=== PATIENT | male | born 1955 | race Caucasian/White ===

== ENCOUNTER 2021-04-27 08:23 | Day surgery (SDC) | payer OTHER ==
[2021-04-22 15:51] VITALS: BMI 25.1
[2021-04-27] MEDS ORDERED: PROPOFOL 20 ML ONE (09:47)
[2021-04-27] MEDS ORDERED: MIDAZOLAM HCL 2 MG/2 ML SINGLE DOSE VIAL ONE (09:47)
[2021-04-27] MEDS ORDERED: DEXAMETHASONE SOD PHOSPHATE 4 MG/1 ML VIAL ONE (09:48)
[2021-04-27] MEDS ORDERED: LIDOCAINE HCL 2% JELLY (5 ML/TUBE) ONE (09:48)
[2021-04-27] MEDS ORDERED: KETOROLAC TROMETHAMINE 30 MG/1 ML VIAL ONE (09:48)
[2021-04-27] MEDS ORDERED: ONDANSETRON 4 MG/2 ML VIAL ONE (09:48)
[2021-04-27] MEDS ORDERED: LIDOCAINE HCL/PF 2% SDV 5ML VIAL ONE (09:48)
[2021-04-27] MEDS ORDERED: PROMETHAZINE HCL 25 MG/1 ML VIAL IVPUSH PRN (10:52)
[2021-04-27] MEDS ORDERED: oxyCODONE HCL 5 MG TABLET PO PRN ×2 (10:52)
[2021-04-27] MEDS ORDERED: ONDANSETRON 4 MG/2 ML VIAL IVPUSH PRN (10:52)
[2021-04-27 12:05] VITALS: PULSE 70; TEMP 97.3
[2021-04-27 12:21] VITALS: BP 130/78
== END 2021-04-27 12:15 | disposition home or self-care (01) ==
LOC: FASU 08:23
PROVIDERS: ATTEND Orthopaedic Surgery Hand Surgery
PROC: 01N54ZZ Release Median Nerve, Percutaneous Endoscopic Approach (ICD-10-PCS; principal; 2021-04-27 10:18)
DX: G56.02 Carpal tunnel syndrome, left upper limb (principal)
CPT/HCPCS: 94760